=== PATIENT | male | born 1995 | race African-American/Black ===

== ENCOUNTER 2018-06-04 17:01 | Emergency (ER) | payer SELFPAY ==
[~2018-06-04] VITALS: Ht 170.2 cm; Wt 100.0 kg
[2018-06-04 17:08] VITALS: BP 145/93; TEMP 98.3
[2018-06-04 19:07] VITALS: PULSE 88
== END 2018-06-04 19:07 | disposition home or self-care (01) ==
LOC: COL.ER 17:01
DX: S01.511A Laceration without foreign body of lip, initial encounter (principal); W54.0XXA Bitten by dog, initial encounter